=== PATIENT | female | born 1995 | race Caucasian/White ===

== ENCOUNTER 2016-09-25 10:26 | Emergency (ER) | payer OTHER ==
[~2016-09-25] VITALS: Ht 167.6 cm; Wt 50.0 kg
[2016-09-25 10:27] VITALS: BP 119/71; PULSE 84; RESP 16; TEMP 97.9; O2SAT 98
--- NOTE | 2016-09-25 12:04 | PD ---
HPI Chief Complaint: Related Problem Time Seen by Provider: 12:04 Travel History International Travel<30 days: No Contact w/Intl Traveler<30days: No Traveled to known affect area: No History of Present Illness HPI 21-year-old female, confirmed by 2 urine tests, presents to the ED for evaluation of 24 hour history of mild lower abdominal cramping and vaginal bleeding. LMP lasted one day, "mid-June." Patient states that she noticed the cramping first. She states this cramping is intermittent, momentary, resolves on its own. She states that she was attempting to have a bowel movement last night when she noticed a few clots of blood in the toilet. She denies vaginal bleeding today. She states that she has been dizzy and nauseated throughout her . She denies fevers, chills, changes in bowel habits, dysuria, vaginal discharge, back pain. She denies chronic health problems. She takes no daily medications. NKDA. PFSH Past Medical History ?: LMP: JUN 2016 Social History Tobacco Use: No Allergies-Medications (Allergen,Severity, Reaction): Coded Allergies: No Known Allergies (Unverified , 09/25/16) Review of Systems Except as stated in HPI: all other systems reviewed are Neg Physical Exam Narrative GENERAL: Well-nourished, well-developed white female in no acute distress. SKIN: Warm and dry. HEAD: Normocephalic. EYES: No scleral icterus. No injection or drainage. NECK: Supple, trachea midline. No JVD or lymphadenopathy. CARDIOVASCULAR: Regular rate and rhythm without murmurs, gallops, or rubs. RESPIRATORY: Breath sounds clear and equal bilaterally. No accessory muscle use. GASTROINTESTINAL: Abdomen soft, mildly tender to palpation in suprapubic region. , nondistended. Active bowel sounds. GENITOURINARY: Normal external genitalia without lesions or erythema. Cervical os high, firm, closed. No cervical motion tenderness. Uterus nontender and nonenlarged. Bilateral adnexa nontender without masses. MUSCULOSKELETAL: No cyanosis, or edema. The patient is ambulatory, moves easily from standing to sitting position. BACK: Nontender without obvious deformity. No CVA tenderness. Data Data Last Documented VS Vital Signs Date Time Temp Pulse Resp B/P Pulse Ox O2 Delivery O2 Flow Rate FiO2 09/25/16 13:38 70 16 108/57 99 Room Air 09/25/16 10:27 97.9 Orders Beta Hcg (Quant/Titer) (09/25/16 12:14) Complete Blood Count With Diff (09/25/16 12:14) Comprehensive Metabolic Panel (09/25/16 12:14) Complete Rh (09/25/16 12:14) Us Pelvis (Ques Pr/Ect)W Trans (09/25/16 ) Urinalysis - C+S If Indicated (09/25/16 12:14) Ed Urine Pregnancytest Poc (09/25/16 12:14) Labs Laboratory Tests Test 09/25/16 09/25/16 12:55 13:04 Urine Color YELLOW Urine Turbidity CLEAR Urine pH 7.5 Urine Specific [place] 1.016 Urine Protein NEG mg/dL Urine Glucose (UA) NEG mg/dL Urine Ketones 10 mg/dL Urine Occult Blood NEG Urine Nitrite NEG Urine Bilirubin NEG Urine Urobilinogen LESS THAN 2.0 MG/DL Urine Leukocyte Esterase NEG Urine RBC 2 /hpf Urine WBC LESS THAN 1 /hpf Urine Squamous Epithelial 1 /hpf Cells Urine Mucus FEW /lpf Microscopic Urinalysis Comment CULT NOT INDICATED White Blood Count 5.4 TH/MM3 Red Blood Count 4.29 MIL/MM3 Hemoglobin 12.8 GM/DL Hematocrit 37.1 % Mean Corpuscular Volume 86.6 FL Mean Corpuscular Hemoglobin 29.8 PG Mean Corpuscular Hemoglobin 34.4 % Concent Red Cell Distribution Width 12.2 % Platelet Count 220 TH/MM3 Mean Platelet Volume 7.7 FL Neutrophils (%) (Auto) 64.1 % Lymphocytes (%) (Auto) 28.3 % Monocytes (%) (Auto) 7.1 % Eosinophils (%) (Auto) 0.2 % Basophils (%) (Auto) 0.3 % Neutrophils # (Auto) 3.5 TH/MM3 Lymphocytes # (Auto) 1.5 TH/MM3 Monocytes # (Auto) 0.4 TH/MM3 Eosinophils # (Auto) 0.0 TH/MM3 Basophils # (Auto) 0.0 TH/MM3 CBC Comment DIFF FINAL Differential Comment Sodium Level 137 MEQ/L Potassium Level 3.5 MEQ/L Chloride Level 103 MEQ/L Carbon Dioxide Level 25.2 MEQ/L Anion Gap 9 MEQ/L Blood Urea Nitrogen 6 MG/DL Creatinine 0.58 MG/DL Estimat Glomerular Filtration 131 ML/MIN Rate Random Glucose 67 MG/DL Calcium Level 9.3 MG/DL Total Bilirubin 0.3 MG/DL Aspartate Amino Transf 12 U/L (AST/SGOT) Alanine Aminotransferase 15 U/L (ALT/SGPT) Alkaline Phosphatase 40 U/L Total Protein 8.4 GM/DL Albumin 4.4 GM/DL Human Chorionic Gonadotropin, [address] MIU/ML Quant Blood Type O POSITIVE Rho(D) Type POSITIVE MDM Medical Decision Making Medical Screen Exam Complete: Yes Emergency Medical Condition: Yes Differential Diagnosis IUP versus ectopic versus threatened versus incomplete AB versus other Narrative Course 21-year-old female, confirmed by 2 urine tests, presents to the ED for evaluation of less than 24 hour history of mild lower abdominal cramping and vaginal bleeding. LMP lasted one day, "mid-June." Patient noticed momentary, intermittent cramping that resolved on its own first. She states that she was attempting to have a bowel movement last night when she noticed a few clots of blood in the toilet. She denies vaginal bleeding today. She states that she has been dizzy and nauseated throughout her . She denies fevers, chills, changes in bowel habits, dysuria, vaginal discharge, back pain. Vitals reviewed. Physical exam reveals a thin, nontoxic-appearing white female in no acute distress. Mild suprapubic tenderness but the abdominal exam is otherwise unremarkable. Cervix high, firm , closed. No vaginal bleeding. CBC: No leukocytosis or anemia. BMP: Unremarkable. UPT: Positive UA: No indication for culture. HC Rh: O+ Transvaginal ultrasound: Intrauterine gestational sac, estimated gestational age 6 weeks 1 day. pole and yolk sac identified. Heart rate 112 BPM. I discussed the workup, findings and plan of care with Dr. Narayanan who is agreeable. I discussed the results of the workup with the patient who was reassured. I cautioned her that this is indeed a threatened and requires close follow-up. She is instructed to follow-up with the safety specialist , return to the ED should symptoms worsen or vaginal bleeding resume. She indicated understanding of the instructions. She is amenable to plan of care. She is stable and discharged home. Diagnosis Primary Impression: Vaginal bleeding in patient at less than 20 weeks gestation Additional Impressions: Abdominal pain in Qualified Code: O26.891 - Abdominal pain in , first trimester Intrauterine Referrals: [facility] Patient Instructions: General Instructions, Threatened Miscarriage (ED) Additional Instructions: Rest, hydrate. Continue with vitamins. Follow-up with the safety specialist this week. Return to the ED for worsening of symptoms or any urgent or emergent medical condition. Disposition: 01 DISCHARGE HOME Condition: Stable Simona Reyes Sep 25, 2016 12:04
[2016-09-25 13:24] LABS: AUTOMATED NEUTROPHIL # 3.5 TH/MM3 (1.8-7.7); BASOPHIL % 0.3 % (0.0-2.0); EOSINOPHIL % 0.2 % (0.0-4.0); HEMATOCRIT 37.1 % (35.0-46.0); HEMO FLAGS DIFF FINAL; LYMPH % 28.3 % (9.0-44.0); LYMPHOCYTE # 1.5 TH/MM3 (1.0-4.8); MEAN CELL VOLUME 86.6 FL (80.0-100.0); MEAN CORPUSCULAR HEMOGLOBIN 29.8 PG (27.0-34.0); MEAN CORPUSCULAR HGB CONC 34.4 % (32.0-36.0); MONO % 7.1 % (0.0-8.0); NEUT % 64.1 % (16.0-70.0); PLATELET COUNT 220 TH/MM3 (150-450); RED BLOOD COUNT 4.29 MIL/MM3 (4.00-5.30); RED CELL DISTRIBUTION WIDTH 12.2 % (11.6-17.2); WHITE BLOOD COUNT 5.4 TH/MM3 (4.0-11.0)
[2016-09-25 13:29] LABS: BLOOD, URINE NEG (NEG); GLUCOSE,URINE NEG (NEG); KETONE, URINE 10 mg/dL (NEG); MUCUS URINE FEW /lpf (OCC); NITRITE,URINE NEG (NEG); PH, URINE 7.5 (5.0-8.5); SQUAMOUS EPITHELIAL CELL URINE 1 /hpf (0-5); URINE COLOR YELLOW (YELLW/STRAW)
[2016-09-25 13:34] LABS: COMMENT (UR) CULT NOT INDICATED; CULTURE IF INDICATED CULT NOT INDICATED
[2016-09-25 13:38] VITALS: BP 108/57; PULSE 70; RESP 16; O2SAT 99
[2016-09-25 13:45] LABS: ANION GAP 9 MEQ/L (5-15); AST (GOT) 12 U/L (15-37); BICARBONATE 25.2 MEQ/L (21.0-32.0); BLOOD UREA NITROGEN 6 MG/DL (7-18); CHLORIDE 103 MEQ/L (98-107); GLOMERULAR FILTRATION RATE 131 ML/MIN (>89); POTASSIUM 3.5 MEQ/L (3.5-5.1); SODIUM (NA) 137 MEQ/L (136-145)
[2016-09-25 14:03] LABS: ALKALINE PHOSPHATASE 40 U/L (45-117); ALT (GPT) 15 U/L (10-53); BETA HCG QUANT 43891 MIU/ML (0-5); TOTAL BILIRUBIN ADULT 0.3 MG/DL (0.2-1.0)
--- NOTE | 2016-09-25 14:57 | RADRPT ---
EXAM DATE/TIME: 09/25/2016 13:05 [facility] COMPARISON: No previous studies available for comparison. INDICATIONS : Pelvic pain and vaginal bleeding. LAB(S): Beta-hC,891 MEDICAL HISTORY : . SURGICAL HISTORY : None. ENCOUNTER: Initial ACUITY: 2 days PAIN SCORE: 4/10 LOCATION: Bilateral pelvis MEASUREMENTS: UTERUS: 8.1 x 4.1 x 6.2 cm ENDOMETRIAL STRIPE: 12 mm RIGHT OVARY: 2.6 x 1.9 x 2.0 cm LEFT OVARY: 2.3 x 1.2 x 3.2 cm FINDINGS: UTERUS: Gestational sac is seen within the uterus. Approximate gestational age by mean sac diameter is 6 week s 1 day. pole and yolk sac are identified. Approximate gestational age by crown-rump length is 6 weeks 2 days. heart activity is identified with a heart rate of 122 beats per minute. RIGHT OVARY: Ovary contains no mass or significant cystic lesion. LEFT OVARY: Ovary contains no mass or significant cystic lesion. MISCELLANEOUS: Trace free fluid. CONCLUSION: 1. Intrauterine with approximate gestational age of 6 weeks, 1- 2 days. 2. heart activity is seen with a heart rate of 122 beats per minute. Erick Virk MD on September 25, 2016 at 14:52 Board Certified Radiologist. This report was verified electronically.
== END 2016-09-25 15:20 | disposition home or self-care (01) ==
LOC: NETRI 10:26
DX: O46.91 Antepartum hemorrhage, unspecified, first trimester (principal); O26.891 Other specified pregnancy related conditions, first trimester; R10.30 Lower abdominal pain, unspecified; O20.0 Threatened abortion; Z3A.01 Less than 8 weeks gestation of pregnancy
CPT/HCPCS: 76700; 76817; 80053; 81001; 84702; 84703; 85025; 86901